=== PATIENT | female | born 1950 | race Caucasian/White ===

== ENCOUNTER 2017-11-26 05:49 | Emergency (ER) | payer MEDICARE, MEDICAID ==
[2017-11-26] MEDS ORDERED: Ketorolac INJ* 30 MG/ML 1 ML VIAL IV PUSH ONE (06:14)
[2017-11-26 06:44] LABS: ABS Basophils 0 10^3/ul (0-0.2); ABS Eosinophils 0.1 10^3/ul (0-0.6); ABS Lymphocytes 1.4 10^3/ul (1.0-4.8); ABS Monocytes 0.5 10^3/ul (0-0.8); ABS Nucleated RBC 0 10^3/ul; Eosinophil % 1.5 % (0-6); Hematocrit 38 % (35-47); Lymphocyte % 23.1 % (25-47); Mean Corpuscular HGB Conc 35 g/dl (31-36); Mean Corpuscular Hemoglobin 34 pg (27-31); Mean Corpuscular Volume 98 fL (80-97); Mean Platelet Volume 8 um3 (7.4-10.4); Nucleated Red Blood Cells % 0; Platelet Count 231 10^3/ul (150-450); Red Blood Count 3.85 10^6/ul (4.0-5.4); Red Cell Distribution Width 13 % (10.5-15); White Blood Count 5.9 10^3/ul (3.5-10.8)
[2017-11-26 06:52] LABS: INR 1.01 (0.77-1.02)
--- NOTE | 2017-11-26 06:54 | ED ---
Marco Cerna Tecjoon, scribed for Janae Rivera MD on 11/26/17 at 0621 . Back Pain - HPI Summary HPI Summary: This patient is a 66 year old female presenting to [facility] with a chief complaint of upper back pain since 1800 yesterday. Patient states the pain is between the shoulder blades. The pain is rated 5/10 in severity. Symptoms aggravated by palpation. Symptoms alleviated by nothing. Patient additionally reports nausea. Patient denies abdominal pain, SOB. Pt denies known cardiac hx. - History of Current Complaint Chief Complaint: EDGeneral Stated Complaint: BACK PAIN/NAUSEA Time Seen by Provider: 11/26/17 06:03 Hx Obtained From: Patient Onset/Duration: Gradual Onset, Lasting Hours, Lasting Days Onset/Duration: Still Present Timing: Intermittent Back Pain Location: Is Discrete @ - "between shoulder blades" Severity Initially: Moderate Severity Currently: Mild Pain Intensity: 5 Pain Scale Used: 0-10 Numeric Aggravating Symptom(s): Other - palpation Associated Signs And Symptoms: Positive: Other - nausea. Negative: Abdominal Pain - Allergies/Home Medications Allergies/Adverse Reactions: Allergies Allergy/AdvReac Type Severity Reaction Status Date / Time Pollen Allergy Eyes Uncoded 11/26/17 06:03 Itchy/Swollen/Red/Watery Sulfa Drugs Allergy Difficulty Uncoded 11/26/17 06:03 Breathing PMH/Surg Hx/FS Hx/Imm Hx Previously Healthy: No Endocrine/Hematology History: Reports: Hx Thyroid Disease - Hypothyroid Denies: Hx Diabetes Cardiovascular History: Denies: Hx Hypertension Respiratory History: Denies: Hx Asthma, Hx Chronic Obstructive Pulmonary Disease (COPD) GI History: Denies: Hx Ulcer - Cancer History Hx Chemotherapy: No Hx Radiation Therapy: No Infectious Disease History: No Infectious Disease History: Reports: Hx Shingles - 2010 Denies: Hx Hepatitis, Hx Human Immunodeficiency Virus (HIV), History Other Infectious Disease, Traveled Outside the [place] in Last 30 Days - Family History Known Family History: Negative: Hypertension - Social History Alcohol Use: None Hx Substance Use: No Substance Use Type: Reports: None Hx Tobacco Use: No Smoking Status (MU): Never Smoked Tobacco Review of Systems Negative: Fever Positive: Nausea. Negative: Abdominal Pain Positive: Other - back pain All Other Systems Reviewed And Are Negative: Yes Physical Exam - Summary Physical Exam Summary: VITAL SIGNS: Reviewed. GENERAL: Patient is a well-developed and nourished female who is lying comfortable in the stretcher. Patient is not in any acute respiratory distress. HEAD AND FACE: No signs of trauma. No ecchymosis, hematomas or skull depressions. No sinus tenderness. EYES: PERRLA, EOMI x 2, No injected conjunctiva, no nystagmus. EARS: Hearing grossly intact. Ear canals and tympanic membranes are within normal limits. MOUTH: Oropharynx within normal limits. NECK: Supple, trachea is midline, no adenopathy, no JVD, no carotid bruit, no c- spine tenderness, neck with full ROM. CHEST: Symmetric, no tenderness at palpation LUNGS: Clear to auscultation bilaterally. No wheezing or crackles. CVS: Regular rate and rhythm, S1 and S2 present, no murmurs or gallops appreciated. ABDOMEN: Soft, non-tender. No signs of distention. No rebound no guarding, and no masses palpated. Bowel sounds are normal. EXTREMITIES: FROM in all major joints, no edema, no cyanosis or clubbing. NEURO: Alert and oriented x 3. No acute neurological deficits. Speech is normal and follows commands. SKIN: Dry and warm Triage Information Reviewed: Yes Vital Signs On Initial Exam: Initial Vitals Temp Pulse Resp BP Pulse Ox 98.5 F 75 16 153/89 99 11/26/17 05:50 11/26/17 05:50 11/26/17 05:50 11/26/17 05:50 11/26/17 05:50 Vital Signs Reviewed: Yes - Dania Coma Scale Coma Scale Total: 15 Diagnostics - Vital Signs Vital Signs Temp Pulse Resp BP Pulse Ox 11/26/17 06:15 6 123/77 11/26/17 05:50 98.5 F 75 16 153/89 99 - Laboratory Lab Results: Lab Results 11/26/17 Range/Units 06:30 WBC 5.9 (3.5-10.8) 10^3/ul RBC 3.85 L (4.0-5.4) 10^6/ul Hgb 13.0 (12.0-16.0) g/dl Hct 38 (35-47) % MCV 98 H (80-97) fL MCH 34 H (27-31) pg MCHC 35 (31-36) g/dl RDW 13 (10.5-15) % Plt Count 231 (150-450) 10^3/ul MPV 8 (7.4-10.4) um3 Neut % (Auto) 66.9 (38-83) % Lymph % (Auto) 23.1 L (25-47) % [place] % (Auto) 7.8 (1-9) % Eos % (Auto) 1.5 (0-6) % Baso % (Auto) 0.7 (0-2) % Absolute Neuts (auto) 4.0 (1.5-7.7) 10^3/ul Absolute Lymphs (auto) 1.4 (1.0-4.8) 10^3/ul Absolute Monos (auto) 0.5 (0-0.8) 10^3/ul Absolute Eos (auto) 0.1 (0-0.6) 10^3/ul Absolute Basos (auto) 0 (0-0.2) 10^3/ul Absolute Nucleated RBC 0 10^3/ul Nucleated RBC % 0 Result Diagrams: 11/26/17 06:30 Lab Statement: Any lab studies that have been ordered have been reviewed, and results considered in the medical decision making process. - EKG 0601 Cardiac Rate: NL EKG Rhythm: Sinus Rhythm - 85 BPM EKG Interpretation: NSR (85 BPM). Nonspecific T-wave abnormalities in inferior leads. Back Pain Course/Dx - Course Course Of Treatment: This patient is a 66 year old female presenting to [facility] with a chief complaint of upper back pain since 1800 yesterday. Patient states the pain is between the shoulder blades. An EKG, taken 0601, reveals NSR (85 BPM). Nonspecific T-wave abnormalities in inferior leads. Bloodwork Obtained. In the ED course the patient was given Toradol. Patient to be signed out at end of shift, pending CT scan, lab, and dispo. - Diagnoses Provider Diagnoses: Upper back pain Discharge - Discharge Plan Condition: Stable Disposition: OTHER Discharge Disposition Comment: Patient to be signed out to Dr Camp, pending CT scan, lab, and dispo Referrals: Elaine Michele PA [Primary Care Provider] - The documentation as recorded by the Marco olivarez Tecjoon accurately reflects the service I personally performed and the decisions made by , Janae Rivera MD.
[2017-11-26 06:58] LABS: EGFR Non-African American 68.6 (>60)
[2017-11-26] MEDS ORDERED: Iohexol 350* (CONTRAST) 500 ML MDV IV ONE (07:17)
--- NOTE | 2017-11-26 08:21 | RAD ---
Indication: Chest pain, evaluate for aortic dissection. CTA of the thoracic aorta was performed after intravenous injection of 62 mL of Omnipaque 350. Coronal and sagittal reconstructed images were obtained. There is fusiform ectasia of the descending aorta measuring up to 3.1 cm. Descending aorta measures up to 2.5 cm. No evidence of aortic dissection is noted. There is no mediastinal or hilar adenopathy noted. There is a moderate-sized hiatal hernia noted. The trachea and major bronchi appear patent. Dependent changes are noted in the lung bases. The axilla demonstrates no evidence of abnormal adenopathy. IMPRESSION: No evidence of aortic dissection. Fusiform ectasia of the ascending aorta.
[2017-11-26 09:39] VITALS: BP 104/59
--- NOTE | 2017-11-26 18:52 | ED ---
Lucho Cerna Angela, scribed for Nicki Dickson MD on 11/26/17 at 0716 . Progress - Progress Note Progress Note: This pt was signed out by Dr. Rivera, pending disposition, awaiting CTA chest. Pt is a 66 y/o female presenting to [facility] c/o pain behind her R shoulder since last evening. She notes she had nausea overnight with her face feeling flushed and "really hot," she denies any nausea currently. Pt denies SOB, chest pain, vomiting, LE pain. She currently rates her pain 5-6 out of 10 in severity. Pt states her ride is here, daughter and . Physical Exam: Appearance: Well-appearing, pain distress, Well-nourished Skin: Warm, color reflects adequate perfusion Head: Normal Head/Face inspection Eyes: Conjunctiva clear ENT: Normal inspection Neck: Supple Respiratory: Lungs clear, Normal breath sounds, no respiratory distress Cardio: RRR, No murmur, pulses normal, brisk capillary refill Musculoskeletal: Strength Intact/ ROM intact, pain right shoulder post on palpation, no deformity, distal pulses, sensation intact Neuro: Alert, muscle tone normal, facial symmetry, speech normal, sensory/motor intact Psychological: Normal Vital Signs at 07:42 are: Blood pressure: 121/67 Pulse: 82 O2 Sat: 97 Respiration: 13 - Results/Orders Results/Orders: CTA chest, as read by radiologist: IMPRESSION: No evidence of aortic dissection. Fusiform ectasia of the ascending aorta. Dr. Dickson has reviewed this radiology report. Re-Evaluation - Re-Evaluation First Eval Re-Evaluation Time: 07:38 Change: Unchanged Comment: Pt notes pain behind her right shoulder. She currently rates her pain 5 -6 out of 10 in severity. Second Eval Re-Evaluation Time: 09:29 Change: Improved Comment: I reviewed the CTA chest results with the pt. I also gave the pt discharge instructions. She currently rates her pain 0/10 in severity. Pt believes it might be a pulled muscle. She understands and agrees with the discharge plan. Course/Dx - Course Course Of Treatment: Pt medications reviewed this visit. Allergies noted. CTA chest reveals no evidence of aortic dissection. Fusiform ectasia of the ascending aorta. I reviewed the CTA chest results with the pt. I also gave the pt discharge instructions. She currently rates her pain 0/10 in severity. Pt believes it might be a pulled muscle. She understands and is agreeable with the discharge plan. - Diagnoses Provider Diagnoses: Right shoulder pain, Acute midline thoracic back pain The documentation as recorded by the Lucho olivarez Angela accurately reflects the service I personally performed and the decisions made by me, Nicki Dickson MD.
== END 2017-11-26 09:38 | disposition home or self-care (01) ==
LOC: ED 05:49
DX: M25.511 Pain in right shoulder (principal); M54.6 Pain in thoracic spine
CPT/HCPCS: 36415; 71275; 80053; 82550; 83735; 84484; 85025; 85610; 85730; 93005; 96374; 99283; J1885; Q9967

== ENCOUNTER 2018-07-10 15:29 | Emergency (ER) | payer MEDICARE ==
[2018-07-10 16:14] VITALS: BP 151/86
--- NOTE | 2018-07-10 16:37 | UC ---
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 Pain Intensity: 8 - Allergies/Home Medications Allergies/Adverse Reactions: Allergies Allergy/AdvReac Type Severity Reaction Status Date / Time Pollen Allergy Eyes Uncoded 07/10/18 16:14 Itchy/Swollen/Red/Watery Sulfa Drugs Allergy Difficulty Uncoded 07/10/18 16:14 Breathing PMH/Surg Hx/FS Hx/Imm Hx - Surgical History Surgical History: None - Family History Known Family History: Negative: Hypertension - Social History Alcohol Use: Weekly Substance Use Type: None Smoking Status (MU): Never Smoked Tobacco Physical Exam Vital Signs: Initial Vital Signs Temp 98.9 F 07/10/18 16:07 Pulse 86 07/10/18 16:07 Resp 16 07/10/18 16:07 BP 151/86 07/10/18 16:07 Pulse Ox 97 07/10/18 16:07 Discharge - Discharge Plan Referrals: Elaine Michele PA [Primary Care Provider] -
== END 2018-07-10 16:54 | disposition left against medical advice (07) ==
LOC: UCEAST 15:29
DX: H92.09 Otalgia, unspecified ear (principal); Z53.21 Procedure and treatment not carried out due to patient leaving prior to being seen by health care provider

== ENCOUNTER 2018-07-10 16:54 | Emergency (ER) | payer MEDICARE ==
[2018-07-10 18:51] VITALS: BP 135/83
--- NOTE | 2018-07-10 19:04 | UC ---
Ear Complaint HPI - HPI Summary HPI Summary: states she is on day 4 of amoxil due to a dental abscess and sepsis for which extraction of 2 teeth on right maxilla is scheduled in 3 days. Started with very intense, short lived sharp/electric like for several minutes 10 after which they dissappear. States when it occurs it includes her right ear and sinus , right side of her jaw and has tearing and clear discharge from her nose. 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 Onset/Duration: Sudden Onset, Lasting Minutes Severity Initially: Severe Severity Currently: Severe Pain Intensity: 9 Aggravating Factors: Nothing Alleviating Factors: Nothing - Allergies/Home Medications Allergies/Adverse Reactions: Allergies Allergy/AdvReac Type Severity Reaction Status Date / Time Pollen Allergy Eyes Uncoded 07/10/18 18:46 Itchy/Swollen/Red/Watery Sulfa Drugs Allergy Difficulty Uncoded 07/10/18 18:46 Breathing PMH/Surg Hx/FS Hx/Imm Hx Previously Healthy: Yes Endocrine History: Hypothyroidism - Surgical History Surgical History: None - Family History Known Family History: Positive: None Negative: Hypertension - Social History Alcohol Use: Weekly Substance Use Type: None Smoking Status (MU): Never Smoked Tobacco Review of Systems Constitutional: Negative Eyes: Drainage ENT: Ear Ache, Nasal Discharge, Sinus Congestion All Other Systems Reviewed And Are Negative: Yes Physical Exam Triage Information Reviewed: Yes Appearance: Well-Appearing, No Pain Distress, Well-Nourished Vital Signs: Initial Vital Signs Temp 98.4 F 07/10/18 18:47 Pulse 78 07/10/18 18:47 Resp 16 07/10/18 18:47 BP 135/83 07/10/18 18:47 Pulse Ox 97 07/10/18 18:47 Vital Signs Reviewed: Yes Eyes: Positive: Conjunctiva Clear ENT: Positive: Hearing grossly normal, Pharynx normal, Sinus tenderness, Other - cerumen b/l, non tender on TMJ, well aligned Neck: Positive: Supple, Nontender, No Lymphadenopathy Respiratory: Positive: Chest non-tender, Lungs clear, Normal breath sounds, No respiratory distress Cardiovascular: Positive: RRR, No Murmur, Pulses Normal, Brisk Capillary Refill Ear Complaint Course/Dx - Course Course Of Treatment: discussed with patient diagnosis of Trigeminal neuralgia, start carbamazepine as prescribed. - Differential Dx/Diagnosis Provider Diagnoses: Trigeminal Neuralgia Discharge - Sign-Out/Discharge Documenting (check all that apply): Patient Departure - Discharge Plan Condition: Stable Disposition: HOME Prescriptions: carBAMazepine TAB(*) [Tegretol TAB(*)] 200 mg PO BID 7 Days #14 tab Patient Education Materials: Carbamazepine (By mouth), Trigeminal Neuralgia (ED ) Referrals: Elaine Michele PA [Primary Care Provider] - - Billing Disposition and Condition Condition: STABLE Disposition: Home
== END 2018-07-10 19:15 | disposition home or self-care (01) ==
LOC: UCEAST 16:54
DX: G50.0 Trigeminal neuralgia (principal); H61.23 Impacted cerumen, bilateral; Z88.2 Allergy status to sulfonamides
CPT/HCPCS: 99212; G0463

== ENCOUNTER 2019-05-22 13:41 | Emergency (ER) | payer MEDICARE, MEDICAID ==
[2019-05-22 13:49] VITALS: BP 132/76
--- NOTE | 2019-05-22 14:06 | UC ---
FLU HPI - HPI Summary HPI Summary: patient started with fever last pm, today has fever and body aches. took advil 200mg at 1230p today. 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 Negative: Cough, Sore Throat, Nasal Congestion - Allergy/Home Medications Allergies/Adverse Reactions: Allergies Allergy/AdvReac Type Severity Reaction Status Date / Time milk Allergy GI Upset Verified 05/22/19 13:49 Milk Containing Products Allergy GI Upset Verified 05/22/19 13:49 shellfish derived Allergy Nausea Verified 05/22/19 13:49 Pollen Allergy Eyes Uncoded 05/22/19 13:49 Itchy/Swollen/Red/Watery Sulfa Drugs Allergy Difficulty Uncoded 05/22/19 13:49 Breathing Home Medications: Home Medications Ibuprofen 200 mg PO ONCE PRN 05/22/19 [History Confirmed 05/22/19] PMH/Surg Hx/FS Hx/Imm Hx Previously Healthy: Yes Endocrine History: Hypothyroidism, Dyslipidemia - Surgical History Surgical History: None - Family History Known Family History: Positive: None Negative: Hypertension - Social History Occupation: Unemployed Lives: With Family Alcohol Use: Weekly Substance Use Type: None Smoking Status (MU): Never Smoked Tobacco Review of Systems All Other Systems Reviewed And Are Negative: Yes Constitutional: Positive: Fever. Negative: Chills Skin: Positive: Negative. Negative: Rash Eyes: Positive: Negative ENT: Positive: Negative. Negative: Sore Throat, Ear Ache, Nasal Discharge Respiratory: Positive: Negative. Negative: Shortness Of Breath, Cough Cardiovascular: Positive: Negative. Negative: Chest Pain Gastrointestinal: Positive: Negative. Negative: Abdominal Pain, Vomiting, Nausea Genitourinary: Positive: Urgency Musculoskeletal: Positive: Other: - low back pain Neurological: Positive: Headache - frontla area last pm, none now Psychological: Positive: Negative Physical Exam Triage Information Reviewed: Yes Appearance: Well-Appearing, No Pain Distress, Well-Nourished Vital Signs: Initial Vital Signs Temp 100 F 05/22/19 13:44 Pulse 94 05/22/19 13:44 Resp 18 05/22/19 13:44 BP 132/76 05/22/19 13:44 Pulse Ox 100 05/22/19 13:44 Vital Signs Reviewed: Yes ENT: Positive: Pharynx normal, TMs normal. Negative: Nasal congestion Neck exam: Normal Neck: Positive: Supple, Nontender, No Lymphadenopathy Respiratory Exam: Normal Respiratory: Positive: Lungs clear Cardiovascular Exam: Normal Cardiovascular: Positive: RRR Abdomen Description: Positive: Nontender, No Organomegaly, Soft. Negative: CVA Tenderness (R), CVA Tenderness (L) Musculoskeletal Exam: Normal Neurological Exam: Normal Psychological Exam: Normal Skin Exam: Normal Skin: Negative: Rashes Flu Course/Dx - Course Course Of Treatment: patient declines offer of ibuprofen or Tylenol here - Differential Dx/Diagnosis Differential Diagnosis/HQI/PQRI: Influenza, Upper Respiratory Infection, Other - UTI, viral illness Provider Diagnosis: Viral illness Discharge - Sign-Out/Discharge Documenting (check all that apply): Patient Departure All imaging exams completed and their final reports reviewed: No Studies - Discharge Plan Condition: Good Disposition: HOME Patient Education Materials: Viral Syndrome (ED) Referrals: Elaine Michele PA [Primary Care Provider] - 2 Days (for rechekc if no better) Additional Instructions: drink plenty of fluids use ibuprofen 400-600mg every 6 hours as needed for pain and fever or tylenol 650mg every 4-6 hours as needed for fever report to ER if your symptoms worsen at any time - Billing Disposition and Condition Condition: GOOD Disposition: Home - Attestation Statements Provider Attestation: I was available for consult. This patient was seen by the [facility]. The patient was not presented to, seen by, or examined by me. -Zhen
[2019-05-22 14:23] LABS: Influenza A Molecular NEGATIVE (Negative); Influenza B Molecular NEGATIVE (Negative)
== END 2019-05-22 14:40 | disposition home or self-care (01) ==
LOC: UCEAST 13:41
DX: B34.9 Viral infection, unspecified (principal)
CPT/HCPCS: 81003; 99211; G0463